=== PATIENT | female | born 2000 | race Hispanic/Latino ===

== ENCOUNTER 2019-06-04 20:52 | Emergency (ER) | payer MEDICAID, OTHER ==
[2019-06-04 21:39] LABS: APPEARANCE,URINE Clear (CLEAR); BILIRUBIN,URINE Negative (NEGATIVE); COLOR,URINE Yellow (YELLOW); GLUCOSE, URINE (UA) Negative (NEGATIVE); KETONES,URINE Negative (NEGATIVE); LEUKOCYTE ESTERASE ,URINE Negative (NEGATIVE); NITRATE,URINE Negative (NEGATIVE); OCCULT BLOOD,URINE Negative (NEGATIVE); PROTEIN,URINE Negative (NEGATIVE)
[2019-06-04 21:44] LABS: HCG,QUAL RESULT NEGATIVE (NEGATIVE)
[2019-06-04] MEDS ORDERED: KETOROLAC TROMETHAMINE 60 MG/2 ML VIAL ONE (21:54)
[2019-06-04] MEDS ORDERED: ORPHENADRINE CITRATE 30 MG/ML ML ONE (21:54)
== END 2019-06-04 23:39 | disposition home or self-care (01) ==
LOC: EDH 20:52
DX: S43.402A Unspecified sprain of left shoulder joint, initial encounter (principal); S13.8XXA Sprain of joints and ligaments of other parts of neck, initial encounter; V69.59XA Passenger in heavy transport vehicle injured in collision with other motor vehicles in traffic accident, initial encounter; Y93.89 Activity, other specified; Y92.410 Unspecified street and highway as the place of occurrence of the external cause; Y99.8 Other external cause status
CPT/HCPCS: 72040; 73030; 81003; 81025; 96372 ×2; 99285; J1885; J2360